=== PATIENT | female | born 1995 | race Caucasian/White ===

== ENCOUNTER 2022-10-01 15:27 | Inpatient (IN) | payer OTHER ==
[~2022-10-01] VITALS: Ht 170.2 cm; Wt 72.7 kg
[2022-10-01] VITALS (15 sets, daily range): BP systolic 105–135; BP diastolic 62–84; PULSE 76–95; TEMP 98.7–99.8
[2022-10-01] MEDS ORDERED: PRENATAL (17:31)
[2022-10-01 17:38] LABS: BASO # 0.1 K/mm3 (0.0-0.2); BASO % 0.4 % (0.0-2.0); EOS # 0.1 K/mm3 (0.0-0.7); EOS % 0.7 % (0.0-4.0); GRAN # 9.6 K/mm3 (1.4-6.5); GRAN % 79.5 % (42.2-75.2); HEMOGLOBIN 12.6 g/dl (12.5-16.0); LYMPH # 1.5 K/mm3 (1.2-3.4); LYMPH % 12.2 % (20.0-51.0); MEAN CELL VOLUME 87 fl (80.0-100.0); MEAN CORPUSCULAR HEMOGLOBIN 31 pg (27-31); MEAN CORPUSCULAR HGB CONC 36 g/dl (33.0-37.0); MEAN PLATELET VOLUME 10.7 fl (7.4-10.4); MONO # 0.8 K/mm3 (0.1-0.6); MONO % 6.5 % (1.7-9.3); PLATELET COUNT 165 K/mm3 (130-400); RED BLOOD COUNT 4.09 M/mm3 (4.10-5.30)
[2022-10-01 17:42] LABS: HEMATOCRIT 35.5 % (37.0-47.0)
--- NOTE | 2022-10-01 17:52 | NUR ---
1608 PATIENT HERE FROM HOME, AFTER GOING TO OFFICE TODAY FOR REGULAR APPOINTMENT AND FOUND NO HEARTBEAT. AT BEDSIDE. VS WNL. ASSESSMENT COMPLETED. IV STARTED IN LEFT HAND, PATIENT TOLERATES WELL. LAB CALLED FOR LAB DRAW. PATIENT DENIES NEEDS. ASKS ALOT OF QUESTION. PATIENT FLAT AFFECT.
--- NOTE | 2022-10-01 17:57 | NUR ---
1745 DR PIRES AT BEDSIDE. TALKS WITH PATIENT AND .SVE 0/40/HIGH. CYTOTEC [address] PIRES AT THIS TIME.PATIENT TOLERATES WELL. DENIES NEEDS OR QUESTIONS AT THIS TIME. 1800 [address] JOSIE RN AT BEDSIDE TO DISCUSS CONSENTS AT THIS TIME
[2022-10-01 18:16] LABS: ALBUMIN 3.4 gm/dL (3.5-5.0); BILIRUBIN,TOTAL 0.2 mg/dL (0.2-1.2); CALCIUM 9.1 mg/dL (8.4-10.2); CREATININE, serum 0.73 mg/dL (0.57-1.11); POTASSIUM 3.5 mmol/L (3.5-4.5)
--- NOTE | 2022-10-01 18:18 | NUR ---
1815 PATIENT VERY CONCERNED WITH COSTS. PATIENT AND HAVE DIFFERENT REQUESTS. WILL ANSWER ALL QUESTIONS WE GO
--- NOTE | 2022-10-01 18:22 | NUR ---
REPORT GIVEN TO Keara GRAY
[2022-10-01 18:32] LABS: THYROID STIMULATING HORMONE 1.283 uIU/mL (0.350-4.940)
[2022-10-02] VITALS (21 sets, daily range): BP systolic 96–134; BP diastolic 55–94; PULSE 60–79; TEMP 98.5–100
--- NOTE | 2022-10-02 04:50 | NUR ---
0450-PT CALLS OUT REQUESTING TO BE CHECKED. 0452- SVE OF 4-5/80/-2, BULGING BAG. DISCUSSED OPTIONS FOR PAIN MANAGEMENT, PT DECLINES EPIDURAL AND REQUESTS IV PAIN MEDICATION. NOTIFIED PT THAT DELIVERY WOULD LIKELY HAPPEN SOON AND THAT I WOULD GIVE IV PAIN MEDICATION NOW. PT AND SPOUSE VERBALIZED UNDERSTANDING, DENY ANY QUESTIONS AT THIS TIME. 0454- DR. PIRES NOTIFIED, SEE PHYSICIAN NOTIFICATION. 0515- PT STATES SOME RELIEVE FOLLOWING 2MG MORPHINE ADMINISTRATION. INSTRUCTED PT TO CALL OUT IF SHE HAS INCREASED PAIN, VAGINAL/RECTAL PRESSURE, OR RUPTURE OF MEMBRANES. UNDERSTANDING VERBALIZED. 0600- PT CALLS OUT AND STATES INCREASED PRESSURE AND URGE TO VOID. INSTRUCTED THAT I WOULD LIKE TO CHECK HER CERVIX PRIOR TO USING THE BATHROOM INCREASED PRESSURE COULD BE CAUSED BY DELIVERY BE CLOSE. PT DECLINES SVE AT THIS TIME AND OPTS TO USE BEDPAN. UNABLE TO VOID AFTER APPROXIMATELY 5 MINUTES. BEDPAN REMOVED. 0615- THIS NURSE OUT OF ROOM TO GET NEXT DOSE OF ABX. 0622- PT CALLS OUT, STATES THAT SHE FELT A "POP". UPON ENTERING THE ROOM BABY HAD DELIVERED IN THE BED. DELIVERY OF FEMALE STILLBIRTH AT 28.5. CORD CLAMPED AND CUT BY THIS NURSE. PARENTS REQUEST THAT BABY BE TAKEN OUT OF THE ROOM. Leny MARTÍNEZ RN. DR. PIRES NOTIFIED OF DELIVERY BY Miguel Angel MANNING, RN, HE IS COMING TO THE HOSPITAL. CHUX PAD CHANGED. PLACENTA NOT YET DELIVERED. 0641- DR. PIRES IN ROOM. Miguel Angel MANNING, GURMEET ASSUMES CARE OF PT. 0645- SPONTANEOUS DELIVERY OF INTACT PLACENTA BY DR. PIRES. INTACT PERINEUM.
--- NOTE | 2022-10-02 06:30 | NUR ---
Assumed care of patient. Rests in bed, alert. Waiting for Dr. Dukes. 0640 Dr. Dukes here, visits with patient and . Gowns up. 0645 Spontaneous delivery of baby. Taken to nursery per request of patient. 0646 Pitocin started at 333ccs an hour as ordered by Dr. Dukes. Dr. Dukes reports patient intact, no repair work done. Patient cleaned up, new pads under buttocks. Denies any pain or discomfort at this time. 1115 Patient request to take shower. Towels and wash cloth brought in. Father of the baby visits with home in the nursery. Patient states does not want to go with spouse.
--- NOTE | 2022-10-02 07:22 | NUR ---
Contacted [facility]. demise is not a candidate for tissue donation and can be released. [facility] Referral #[id number]
--- NOTE | 2022-10-02 09:40 | NUR ---
THIS RN ANSWERS CALL LIGHT. PT WISHES TO GET UP TO VOID AT THIS TIME. PT STANDBY ASSIST TO BATHROOM. PERICARE DONE. CLEAN PAD AND UNDERWEAR PLACED. PT STANDBY ASSIST BACK TO BED. PT PROVIDED WATER AT THIS TIME. PT DENIES WANTING FOOD AT THIS TIME. CALL LIGHT WITHIN REACH.
--- NOTE | 2022-10-02 13:30 | NUR ---
Rests in bed, alert. Discharge instructions given, verbalizes understanding. Offered a wheel chair, denies, states will walk. Ambulates, alert, stable.
[2022-10-03 07:04] LABS: TOXOPLASMA AB, IGG <3.0 IU/mL (0.0-7.1); TOXOPLASMA AB, IGM <3.0 AU/mL (0.0-7.9); TOXOPLASMA IGG VALUE Negative (Negative); TOXOPLASMA IGM VALUE Negative (Negative)
[2022-10-03 23:36] LABS: BETA-2 GPI IGG AABS <20.0 CU (<=20.0); BETA-2 GPI IGM AABS <20.0 CU (<=20.0)
== END 2022-10-02 13:30 | disposition home or self-care (01) | DRG 805 ==
LOC: OB 15:27 → LDR 16:20
PROVIDERS: ADMIT Obstetrics & Gynecology
PROC: 10E0XZZ Delivery of Products of Conception, External Approach (ICD-10-PCS; principal; 2022-10-02)
DX: O36.4XX0 Maternal care for intrauterine death, not applicable or unspecified (principal); O41.1230 Chorioamnionitis, third trimester, not applicable or unspecified; Z37.1 Single stillbirth; O36.5930 Maternal care for other known or suspected poor fetal growth, third trimester, not applicable or unspecified; O99.72 Diseases of the skin and subcutaneous tissue complicating childbirth; L42 Pityriasis rosea; Z23 Encounter for immunization; Z3A.28 28 weeks gestation of pregnancy
CPT/HCPCS: J0290; J1580; J2270; J2405; J2590; J7120

== ENCOUNTER 2024-01-11 22:25 | Inpatient (IN) | payer BC ==
[~2024-01-11] VITALS: Ht 170.2 cm; Wt 76.8 kg
[~2024-01-11 22:25] MED LIST: PRENATAL
--- NOTE | 2024-01-11 22:28 | NUR ---
PT ARRIVED WITH COMPLAINT OF CONTRACTIONS INCREASING IN INTENSITY THROUGHOUT THE DAY. REPORTS STARTED NOTICING LEAKING SMALL AMOUNT OF CLEAR FLUID STARTING AT ABOUT 9AM WHICH HAS CONTINUED AND BECOME LIGHT PINK. PT HAD CALLED EARLIER AND WAS ENCOURAGED TO COME IN TO RULE OUT SROM BUT WANTED TO WAIT FOR CONTRACTIONS TO INCREASE. 2244-ROM SWAB WAS INCONCLUSIVE, ROM+ OBTAINED AND SENT TO LAB. SVE REVEALS VERY STRETCHY CERVIX 6+ 80-90% -1. PT TOLERATING CONTRACTIONS WELL. DISCUSSED POC AND RATIONALE FOR INTERVENTIONS. PT WANTING LITTLE INTERVENTION POSSIBLE. REVIEWED PLAN.
[2024-01-11 22:40] VITALS: BP 134/82; PULSE 93; TEMP 97.8
[2024-01-11] MEDS ORDERED: LR 1,000 ML IV PRN (23:00)
[2024-01-12] VITALS (18 sets, daily range): BP systolic 109–143; BP diastolic 62–96; PULSE 56–106; TEMP 97.5–98.9
--- NOTE | 2024-01-12 | NUR ---
DIFFICULT TO TRACE CONTRACTIONS DUE TO PT POSITION. ADJUSTED TOCO.
--- NOTE | 2024-01-12 00:20 | NUR ---
EFM REMOVED FOR PT TO BE UP. DISCUSSED WALKING IN HALLS OR SITTING ON LABOR BALL, OR STANDING AND LEANING OVER IT. 0052-EFM REAPPLIED. PT WANTS TO REST IN BED FOR NOW.
[2024-01-12] MEDS ORDERED: LR 1,000 ML IV SCH (00:30)
[2024-01-12 00:46] LABS: BASO % 0.1 % (0.0-2.0); EOS % 0.2 % (0.0-4.0); GRAN # 11.1 K/mm3 (1.4-6.5); GRAN % 82.5 % (42.2-75.2); HEMOGLOBIN 10.9 g/dl (12.5-16.0); LYMPH # 1.2 K/mm3 (1.2-3.4); LYMPH % 8.6 % (20.0-51.0); MEAN CELL VOLUME 78 fl (80.0-100.0); MEAN CORPUSCULAR HEMOGLOBIN 25 pg (27-31); MEAN CORPUSCULAR HGB CONC 33 g/dl (33.0-37.0); MEAN PLATELET VOLUME 12.5 fl (7.4-10.4); MONO % 7.7 % (1.7-9.3); PLATELET COUNT 175 K/mm3 (130-400); REDCELL DISTRIBUTION WIDTH-CV 14.8 % (11.5-14.5)
[2024-01-12 01:07] LABS: HEMATOCRIT 33.5 % (37.0-47.0)
--- NOTE | 2024-01-12 01:30 | NUR ---
PT UP TO BR. HAS BEEN RESTING ON HER RIGHT SIDE. PT HAVING LOW BACK PAIN WITH CONTRACTIONS. DISCUSSED POSITIONS TO TRY TO HELP WITH THE PAIN AND ALSO TO HELP BABY ROTATE IF SHE IS OP.
--- NOTE | 2024-01-12 02:00 | NUR ---
DIFFICULT TRACING OF CONTRACTIONS DUE TO PT POSITION
--- NOTE | 2024-01-12 02:30 | NUR ---
PT SITTING UP AND DOING HANDS AND KNEES DURING CTX. DIFFICULTY TRACING CONTRACTIONS. ADJUST TOCO.
[2024-01-12] MEDS ORDERED: LR & Oxytocin 500 ML IV SCH (02:45)
--- NOTE | 2024-01-12 03:00 | NUR ---
PT REQUESTS TO WAIT ANOTHER HOUR BEFORE CERVICAL CHECK. DISCUSSED POC. PT STATES CONTRACTION PAIN HAS INCREASED. LOW BACK PAIN PERSISTING. ENCOURAGED POSITION CHANGES, SHOWED TECHNIQUES ON PERFORMING COUNTER PRESSURE.
--- NOTE | 2024-01-12 03:30 | NUR ---
EFM REPLACED AT THIS TIME. PT BACK IN BED.
--- NOTE | 2024-01-12 03:56 | NUR ---
POOR TOCO TRACING DUE TO PT POSITION/MOVEMENT. ADJUSTED TOCO. PT UP TO BATHROOM.
--- NOTE | 2024-01-12 04:20 | NUR ---
PT CONSENTED FOR SVE. EXAM IS 8+, STRETCHY, LARGE FOREBAG NOTED. DISCUSSED PITOCIN AUGMENTATION WITH PT. PT AGREES.
--- NOTE | 2024-01-12 04:45 | NUR ---
PITOCIN AUGMENTATION BEGUN AT 2 MU. ASSISTED PT AND IN POSITION CHANGES, ICE/HEAT TO BACK FOR COMFORT.
--- NOTE | 2024-01-12 05:45 | NUR ---
0540-PT COMPLETELY DILATED 0543-NOTIFIED DR VALDERRAMA. FOREBAG SPONTANEOUSLY RUPTURED AT THIS TIME. MOD AMT CLEAR FLUID. 0545-PT PUSHING INVOLUNTARILY. SUPPORTED PT WITH BREATHING. DISCUSSED PUSHING TECHNIQUES. STOPPED PITOCIN WHILE AWAITING DR VALDERRAMA.
--- NOTE | 2024-01-12 06:15 | NUR ---
BEGINS ACTIVELY PUSHING WITH ASSISTANCE IN TECHNIQUE.
[2024-01-12] MEDS ORDERED: Magnes Hydrox (MOM) 80 MG/ML 30 ML CUP PO PRN (07:30)
[2024-01-12] MEDS ORDERED: Acetaminophen 500 MG TAB PO SCH (07:30)
[2024-01-12] MEDS ORDERED: Phenylephrine/Mineral Oil/Petrolatum 57 GM TUBE RC PRN (07:30)
[2024-01-12] MEDS ORDERED: Measles/Mumps/Rubella Virus Vaccine Live w Diluent 0.5 ML VIAL SQ SCH (07:30)
[2024-01-12] MEDS ORDERED: oxyCODONE 5 MG TAB PO PRN (07:30)
[2024-01-12] MEDS ORDERED: Naloxone 0.4 MG/ML VIAL IV PRN (07:30)
[2024-01-12] MEDS ORDERED: Loratadine 10 MG TAB PO PRN (07:30)
[2024-01-12] MEDS ORDERED: Mag/Al Hydrox/Simeth Susp 30 ML CUP PO PRN (07:30)
[2024-01-12] MEDS ORDERED: Ibuprofen 600 MG TAB PO SCH (07:30)
[2024-01-12] MEDS ORDERED: Witch Hazel 50% Pads Bulk TUB TP PRN (07:30)
--- NOTE | 2024-01-12 07:43 | NUR ---
0620 - This RN assumes care of this pt at this time. Pt pushing with contractions, Dr. Lester at bedside. 0624 - Pitocin restarted at 4mu/hr per Dr. Lester. 0640 - Bed broken down at this time, pt and physician prepped for delivery. 0645 - Viable female infant born via at 0645. placed on mother's abdomen where dried and stimulated. Cord clamped and cut by Heike Aviles, RN of nursery assumes care of infant at this time. 0652 - Spontaneous delivery of placenta at this time. Repair of 3rd degree laceration performed by Dr. Lester. 0712 - Dr. Lester drains baldder with red robbin. Pericare provided, clean bed pad and ice pack placed. Pt repositioned for comfort. 0725 - Pt takes own pain medication - Advil 400mg, Tylenol 1000mg.
[2024-01-12] MEDS ORDERED: Sennosides/Docusate 8.6-50 MG TAB PO SCH (08:00)
[2024-01-12] MEDS ORDERED: Patient's Own Medication Item PO PRN ×4 (08:45→15:00)
[2024-01-12] MEDS ORDERED: traZODone 50 MG TAB PO PRN (21:00)
[2024-01-13 03:30] VITALS: BP 116/70; PULSE 102; TEMP 97.9
[2024-01-13 07:30] VITALS: BP 118/84; PULSE 92; TEMP 97.5
--- NOTE | 2024-01-13 13:31 | NUR ---
Initial visit; Parents thanked [employer]ician [employer] for looking in on them and offering congratulations and God's blessings for the of their daughter. [employer]ician [employer] thanked family for choosing [facility].
== END 2024-01-13 16:15 | disposition home or self-care (01) | DRG 768 ==
LOC: LDRO 22:25 → LDR 22:51 → OB 23:45 → LDRO 23:45 → LDR 23:45 → OB 01-12 12:04
PROVIDERS: Obstetrics & Gynecology; ADMIT Obstetrics & Gynecology
PROC: 10E0XZZ Delivery of Products of Conception, External Approach (ICD-10-PCS; principal; 2024-01-12)
PROC: 0DQR0ZZ Repair Anal Sphincter, Open Approach (ICD-10-PCS; 2024-01-12)
DX: O70.20 Third degree perineal laceration during delivery, unspecified (principal); Z37.0 Single live birth; Z3A.38 38 weeks gestation of pregnancy; Z23 Encounter for immunization
CPT/HCPCS: OP; J2590; J7120